=== PATIENT | female | born 1985 | race Caucasian/White ===

== ENCOUNTER 2018-11-17 21:24 | Emergency (ER) | payer MEDICAID ==
[2018-11-18 03:55] VITALS: BP 107/51; PULSE 79; O2SAT 100
[2018-11-18 11:24] VITALS: RESP 18
== END 2018-11-17 23:10 | disposition home or self-care (01) ==
LOC: H.EROB2 21:24
DX: O26.93 Pregnancy related conditions, unspecified, third trimester (principal); R10.2 Pelvic and perineal pain; Z3A.39 39 weeks gestation of pregnancy